=== PATIENT | female | born 1980 | race Caucasian/White ===

== ENCOUNTER → 2021-05-04 09:20 | Outpatient (CLI) | payer OTHER, SELFPAY ==
--- NOTE | ~2021-05-04 | MM_ITS ---
EXAMINATION: MM screening ino BI w laurie HISTORY: Screening mammogram TECHNIQUE: Craniocaudal and mediolateral oblique 3-D tomosynthesis images were obtained and synthetic 2-D images were generated. CAD analysis was submitted and interpreted. COMPARISON: No prior mammogram is available for comparison at this institution. BREAST PARENCHYMAL COMPOSITION: There are scattered areas of fibroglandular density. FINDINGS: There is no evidence of suspicious mass, calcification, or architectural distortion to sugg est malignancy in either breast. There has been no suspicious interval change. IMPRESSION: 1. No mammographic evidence of malignancy. 2. Recommend routine screening mammography in one year. BI-RADS Category 1: Negative Reviewed, dictated and finalized at location A.
== END ==
PROVIDERS: PCP Family Medicine; Visit Provider Advanced Practice Midwife
DX: Z12.31 Encounter for screening mammogram for malignant neoplasm of breast (principal)
CPT/HCPCS: 77063; 77067

== ENCOUNTER 2021-07-07 10:44 | Emergency (ER) | payer OTHER, SELFPAY ==
[2021-07-07 10:53] VITALS: BP 129/90; PULSE 87; RESP 18; TEMP 37.4; O2SAT 98
--- NOTE | 2021-07-07 10:56 | ED.URI ---
HPI - URI/Sore Throat General Chief Complaint: Upper Respiratory Infection Stated Complaint: Headache,Body Aches,Nausea Time Seen by Provider: 07/07/21 10:56 Source: patient, RN notes reviewed and old records reviewed Mode of arrival: ambulatory Limitations: no limitations History of Present Illness HPI Narrative: 40 year old female who presents to [facility] with complaints of headache, body aches and nausea which started overnight. Patient reports that fiance tested positive for COVID yesterday and she has not had any COVID or flu vaccinations.Patient reports that she tested self this morning with negative test obtained. She states that she has some sinus drainage and she has a noted cough with some tightness feeling of chest. She denies any dyspnea but has had diagnosis of exercise induced asthma in the past. Review of Systems Review of Systems: CONSTITUTIONAL: Denies fever, chills, or sweats. EYES: Denies visual changes, redness, or discharge. ENT: Positive for rhinorrhea, congestion, no sore throat, or otalgia. CARDIOVASCULAR: Denies chest pain, palpitations, or edema. RESPIRATORY: Positive for cough denies dyspnea, reports tightness feeling in chest GASTROINTESTINAL: Denies abdominal pain, nausea, vomiting, or diarrhea. GENITOURINARY: Denies dysuria or hematuria. SKIN: Denies rash or itching. MUSCULOSKELETAL: Denies back pain, joint pain,positive for body aches. NEUROLOGIC: Positive for headache,no numbness, or weakness. PSYCHIATRIC: Denies anxiety or depression. All systems reviewed & are unremarkable except as noted in HPI and below PMFSH Past Medical History Medical History (Updated 07/09/21 @ 21:59 by Sarah Alfonso NP) Exercise-induced asthma GERD (gastroesophageal reflux disease) Pneumonia Surgical History Surgical History (Updated 07/07/21 @ 11:14 by Sarah Alfonso NP) History of appendectomy History of thumb surgery left from cat bite Social History Social History (Updated 07/09/21 @ 21:59 by Sarah Alfonso NP) Smoking status: Never smoker Alcohol intake: current Alcohol use details: social Substance use: never Living arrangements: with family Gender identity (if verbalized by the patient): Female Comments At time of signature, agree with nursing past medical, surgical, social and family history. There is no relevant family history pertinent to the presenting complaint Exam Narrative: GENERAL: Well-appearing, well-nourished, and in no acute distress. HEAD: Normocephalic, atraumatic. EYES: PERRLA and EOMI. ENT: Nares red with clear rhinorrhea no epistaxis. Mucous membranes moist.TM's normal with good light reflex, throat pink with no lesions or exudates or tonsil swelling NECK: Supple. no lymphadenopathy CHEST: Clear to auscultation. No respiratory distress.SAO2 98% on room air, reports cough HEART: Regular rate and rhythm. No murmur heard. Normal peripheral pulses. ABDOMEN: Soft, nontender, nondistended, normal active bowel sounds. EXTREMITIES: Normal range of motion. No edema. SKIN: Warm, dry, no rash. NEURO: No focal deficits. Alert and oriented x3. Course Vital Signs Vital signs: Vital Signs Temperature 37.4 C 07/07/21 10:53 Pulse Rate 87 07/07/21 10:53 Respiratory Rate 18 07/07/21 10:53 Blood Pressure 129/90 07/07/21 10:53 Pulse Oximetry 98 07/07/21 10:53 Temperature 37.4 C 07/07/21 10:53 Pulse Rate 87 07/07/21 10:53 Respiratory Rate 18 07/07/21 10:53 Blood Pressure 129/90 07/07/21 10:53 Pulse Oximetry 98 07/07/21 10:53 MDM - URI/Sore Throat Differential Diagnosis Differential diagnosis: Likely upper respiratory infection, sinusitis, viral infection, bronchitis, influenza and other (Positive exposure to COVID-19) Medical Records Attestation: I reviewed the patient's medical records. Lab Data Attestation: I reviewed the patient's lab results. Lab results narrative: Covid antigen negative, influenza A negative influenza B ne
== END 2021-07-07 11:50 | disposition home or self-care (01) ==
PROVIDERS: Emergency Provider Registered Nurse; PCP Family Medicine
DX: J06.9 Acute upper respiratory infection, unspecified (principal); Z20.822 Contact with and (suspected) exposure to COVID-19; J45.990 Exercise induced bronchospasm; K21.9 Gastro-esophageal reflux disease without esophagitis
CPT/HCPCS: 87426; 87804; 99203; C9803; G0463

== ENCOUNTER 2021-07-09 08:28 | Outpatient (CLI) | payer OTHER, SELFPAY ==
[2021-07-09 09:59] LABS: SARS-CoV-2 RNA PCR Positive (Negative)
== END 2021-07-09 08:29 | disposition home or self-care (01) ==
LOC: CHSLAB 08:32
PROVIDERS: PCP Family Medicine; Visit Provider Registered Nurse
DX: U07.1 COVID-19 (principal); R05.8 Other specified cough
CPT/HCPCS: C9803; U0003; U0005

== ENCOUNTER 2021-07-16 11:12 | Emergency (ER) | payer OTHER, SELFPAY ==
--- NOTE | 2021-07-16 11:40 | ED.URI ---
HPI - URI/Sore Throat General Chief Complaint: Upper Respiratory Infection Stated Complaint: Congestion,Shortness of Breath Time Seen by Provider: 07/16/21 11:40 Source: patient, family and RN notes reviewed History of Present Illness HPI Narrative: Patient is a 40-year-old female who presents the urgent care with complaints of congestion and shortness of breath. Patient is Covid positive and has been symptomatic since the . Patient's last day of quarantine is tomorrow. Patient denies of any recent fevers, nausea or vomiting. Patient has been using the albuterol inhaler that was prescribed to her on the at our facility and had taken the prednisone. No other acute complaints. No acute distress noted. Patient aware of the plan of care. Some parts of this dictation were generated by voice recognition software and may contain typographical and/or grammatical inaccuracies. Review of Systems Review of Systems: CONSTITUTIONAL: Denies fever, chills, or sweats. EYES: Denies visual changes, redness, or discharge. ENT: Denies rhinorrhea, congestion, sore throat, or otalgia. CARDIOVASCULAR: Denies chest pain, palpitations, or edema. RESPIRATORY: Reports of persistent cough, dizziness and chest congestion GASTROINTESTINAL: Denies abdominal pain, nausea, vomiting, or diarrhea. GENITOURINARY: Denies dysuria or hematuria. SKIN: Denies rash or itching. MUSCULOSKELETAL: Denies back pain, joint pain, or myalgia. NEUROLOGIC: Denies headache, numbness, or weakness. All other systems reviewed are negative, except as documented in HPI. [facility] Past Medical History Medical History (Updated 07/16/21 @ 11:54 by JAZMYN Fan) Exercise-induced asthma GERD (gastroesophageal reflux disease) Pneumonia Surgical History Surgical History (Updated 07/07/21 @ 11:14 by Sarah Alfonso NP) History of appendectomy History of thumb surgery left from cat bite Social History Social History (Updated 07/09/21 @ 21:59 by Sarah Alfonso NP) Smoking status: Never smoker Alcohol intake: current Alcohol use details: social Substance use: never Gender identity (if verbalized by the patient): Female Comments At the time of my signature, I reviewed and agree with the nursing past medical, surgical, social, and family history. There is no relevant family history pertinent to the patient complaint. Exam Narrative: GENERAL: This is a well-nourished, well-developed patient, in no apparent distress. HEAD: normocephalic, atraumatic. Frontal sinus tenderness EYES: PERRL. Sclera clear/white. Vision is grossly intact. EARS: External ears normal, auditory canals clear and without drainage, TMs normal without perforation. Hearing grossly intact. NOSE: External nose normal with no obvious nasal discharge, nares without redness, clear to yellow rhinorrhea. THROAT: Mucous membranes moist, posterior pharynx clear. Moderate postnasal drainage NECK: Neck supple CARDIOVASCULAR: Regular rate and rhythm without murmurs, gallops, or rubs. RESPIRATORY: Clear to auscultation. Slightly diminished bibasilar. No wheezes, rales, or rhonchi. SKIN: warm, intact with no suspicious lesions or rash, good texture and turgor. NEURO: awake, alert, and oriented to person, place and time. There were no obvious focal neurologic abnormalities. EXTREMITIES: No clubbing, cyanosis, or edema. Course Vital Signs Vital signs: Vital Signs Temperature 98.0 F 07/16/21 11:41 Pulse Rate 79 07/16/21 11:41 Respiratory Rate 20 07/16/21 11:41 Blood Pressure 122/79 07/16/21 11:41 Pulse Oximetry 100 07/16/21 11:41 Temperature 98.0 F 07/16/21 11:41 Pulse Rate 79 07/16/21 11:41 Respiratory Rate 20 07/16/21 11:41 Blood Pressure 122/79 07/16/21 11:41 Pulse Oximetry 100 07/16/21 11:41 Reviewed MDM - URI/Sore Throat MDM Narrative Medical decision making narrative: Advised patient to continue using the inhaler as needed for shortness of
[2021-07-16 11:41] VITALS: BP 122/79; PULSE 79; RESP 20; TEMP 36.7; O2SAT 100
== END 2021-07-16 12:00 | disposition home or self-care (01) ==
PROVIDERS: Emergency Provider Nurse Practitioner Family; PCP Family Medicine
DX: U07.1 COVID-19 (principal)
CPT/HCPCS: 99213; G0463

== ENCOUNTER 2021-07-23 11:32 | Outpatient (CLI) | payer OTHER, SELFPAY ==
--- NOTE | ~2021-07-23 | XR_ITS ---
XR chest 2V DATE: 07/23/2021 11:49 INDICATION: Covid 19 infection TECHNIQUE: PA and lateral views COMPARISON: None FINDINGS: Normal heart size. No hilar or mediastinal enlargement. There are mild patchy infiltrates predominantly in the mid and lower lung zones bilaterally, most con sistent with bilateral Covid pneumonia. No pleural effusion or pulmonary vascular congestion or pneumothorax. There is levoscoliosis of the upper thoracic spine and dextroscoliosis of the mid to lower thoracic s pine. IMPRESSION: Mild patchy bilateral predominantly mid and lower lung infiltrates, likely due to bilater al Covid pneumonia Reviewed, dictated and finalized at location A. [employer] IMPRESSION: Mild patchy bilateral predominantly mid and lower lung infiltrates, likely due to bilateral Covid pneumonia
== END 2021-07-23 11:33 | disposition home or self-care (01) ==
PROVIDERS: PCP Family Medicine
DX: U07.1 COVID-19 (principal); R91.8 Other nonspecific abnormal finding of lung field
CPT/HCPCS: 71046

== ENCOUNTER 2021-07-24 17:51 | Outpatient (CLI) | payer OTHER, SELFPAY ==
--- NOTE | ~2021-07-24 | CT_ITS ---
EXAMINATION: CTA chest PE protocol EXAM DATE: 07/24/2021 18:35 INDICATION: COVID, shortness of breath. TECHNIQUE: Spiral CTA of the chest (pulmonary arteries) was performed with 100 cc Omnipaque 350 intr avenous contrast injection. Images were acquired during the pulmonary arterial phase. Coronal maxi mum intensity projection 3D-reconstructions were created by the technologist on dedicated workstation . Axial, coronal and sagittal reformatted images were reviewed. The dose-length product (DLP) for t his examination was 249.98 mGy-cm. The exposure was tailored according to patient size (auto mA exp osure control), and iterative reconstruction (ASIR) was used as additional dose reduction technique. Correlation is made to chest x-ray from yesterday. FINDINGS: Pulmonary arteries are well opacified and without intraluminal filling defects. No thora cic aortic dissection. There is small to moderate amount of posterior predominant groundglass airspa ce disease, appearance is consistent with acute stage COVID pneumonia. There are no pleural or peric ardial effusions. Tracheobronchial tree is patent. There is no mediastinal, hilar or axillary lym phadenopathy. There is no pneumothorax. Heart normal in size. No evidence of coronary arterial calcification. Upper abdomen is unremarkable. Minimal thoracic scoliosis. IMPRESSION: 1. Small to moderate amount of COVID pneumonia. 2. No pulmonary emboli. I discussed these results with the patient at time of this dictation. We are notifying ordering physi markel of the results. Reviewed, dictated and finalized at location A. UCT SAFETY ENGINEER IMPRESSION: 1. Small to moderate amount of COVID pneumonia. 2. No pulmonary emboli. I discussed these results with the patient at time of this dictation. We are no tifying ordering physician of the results.
== END 2021-07-24 17:52 | disposition home or self-care (01) ==
LOC: ANHIMG 17:54
PROVIDERS: PCP Family Medicine
DX: U07.1 COVID-19 (principal); J12.82 Pneumonia due to coronavirus disease 2019
CPT/HCPCS: 71275; Q9967

== ENCOUNTER → 2022-04-14 07:54 | Outpatient (CLI) | payer OTHER, SELFPAY ==
--- NOTE | ~2022-04-14 | MMUS_ITS ---
EXAMINATION: MM diagnostic ino BI w laurie, US breast BI complete HISTORY: Upper outer quadrant left breast lump TECHNIQUE: ML, MLO and CC full field and spot 3-D tomosynthesis images of both breasts were performed and synthetic 2-D images were generated. CAD analysis was submitted and interpreted. High resolution bilateral complete breast ultrasound including all 4 quadrants and subareolar areas was performed. COMPARISON: 05/04/2021 bilateral screening mammogram BREAST PARENCHYMAL COMPOSITION: There are scattered areas of fibroglandular density. FINDINGS: MAMMOGRAPHIC FINDINGS: No suspicious mass or architectural distortion, malignant calcification, skin thickening or retractio n or significant new or developing density is detected. ULTRASOUND: No suspicious mass or shadowing, cyst or other significant sonographic abnormality is detected in eit her breast. IMPRESSION: 1. No mammographic evidence of malignancy; negative mammogram and ultrasound do not preclude further evaluation of any clinically suspicious palpable abnormality. 2. Routine mammographic screening is recommended BI-RADS Category 1: Negative Reviewed, dictated and finalized at location A. IMPRESSION: 1. No mammographic evidence of malignancy; negative mammogram and ultrasound do not preclude further evaluation of any clinically suspicious palpable abnormal ity. 2. Routine mammographic screening is recommended BI-RADS Category 1: Negative
== END ==
PROVIDERS: PCP Family Medicine; Visit Provider Nurse Practitioner
DX: R92.8 Other abnormal and inconclusive findings on diagnostic imaging of breast (principal)
CPT/HCPCS: 76641; 77062; 77066; G0279